=== PATIENT | female | born 1995 | race Caucasian/White ===

== ENCOUNTER 2018-05-21 23:56 | Inpatient (IN) | payer MEDICAID, OTHER ==
[2018-05-22] MEDS ORDERED: STADOL IV PRN (00:55)
[2018-05-22] MEDS ORDERED: BRETHINE IVP PRN (00:55)
[2018-05-22] MEDS ORDERED: AMPICILLIN/NS 2 GM/100 ML 2 GM/100 ML BAG IV ONE (00:55)
[2018-05-22] MEDS ORDERED: XYLOCAINE 2% INFILTRATI ONE ×2 (00:55→01:46)
[2018-05-22] MEDS ORDERED: MINERAL OIL PO PRN ×2 (00:55→01:46)
[2018-05-22] MEDS ORDERED: BRETHINE SUB-Q PRN (00:55)
[2018-05-22] MEDS ORDERED: PITOCin/NS 20 UNIT/1000ML DRIP 20 UNITS/1,000 ML BAG IV SCH (01:00)
[2018-05-22] MEDS ORDERED: LACTATED RINGERS 1,000 ML IV SCH ×2 (01:00→02:00)
[2018-05-22 01:49] LABS: Hematocrit 36.3 % (30.3-42.9); Hemoglobin 12.1 gm/dl (10.1-14.3); Mean Corpuscular HGB Conc 33 % (30-34); Mean Corpuscular Volume 91 fl (79-97); Platelet Count 204 K/mm3 (140-440); Red Blood Count 3.99 M/mm3 (3.65-5.03); Red Cell Distribution Width 14.7 % (13.2-15.2)
[2018-05-22] MEDS ORDERED: PITOCin/NS 30 UNIT/500ML 30,000 MILLIUNITS/500 ML BAG IV ONE (02:04)
--- NOTE | 2018-05-22 02:29 | History and Physical Report ---
History of Present Illness Date of examination: 05/22/18 Date of admission: 05/22/18 01:28 Chief complaint: Labor Pains History of present illness: Late transfer into care at 35 5/7 Weeks, Uncomplicated course Past History Past Medical History: asthma Past Surgical History: other (Hernia Repair) Family/Genetic History: diabetes, heart disease, hypertension, cancer Social history: no significant social history, - Obstetrical History Expected Date of Delivery: 05/23/18 Actual Gestation: 39 Week(s) 6 Day(s) : 3 Para: 1 Induced : 1 Number of Living Children: 1 #1 Gender: Male year: 13 Birthweight: 3.118 kg Method of Delivery: Vaginal Gestational age at delivery: 39 Complications: none Medications and Allergies Allergies Allergy/AdvReac Type Severity Reaction Status Date / Time No Known Allergies Allergy Verified 05/22/18 01:03 Home Medications Medication Instructions Recorded Confirmed Last Taken Type Formula Tablet PO QDAY 05/22/18 1 Day Ago History ~05/21/18 1 tab Active Meds: Active Medications Butorphanol Tartrate (Stadol) 2 mg IV Q2H PRN PRN Reason: Pain , Severe (7-10) Ephedrine Sulfate (Ephedrine Sulfate) 10 mg IV Q2M PRN PRN Reason: Hypotension Ampicillin Sodium (Ampicillin/Ns 1 Gm/50 Ml) 1 gm in 50 mls @ 100 mls/hr IV Q4HR ERIKA; Protocol Lactated Ringer's (Lactated Ringers) 1,000 mls @ 125 mls/hr IV DIRECT ERIKA Oxytocin/Sodium Chloride (Pitocin/Ns 20 Unit/1000ml Drip) 20 units in 1,000 mls @ 125 mls/hr IV DIRECT ERIKA Oxytocin/Sodium Chloride (Pitocin/Ns 30 Unit/500ml) 30 units in 500 mls @ 1 mls/hr IV TITR ERIKA; Protocol Mineral Oil (Mineral Oil) 30 ml PO QHS PRN PRN Reason: Constipation Terbutaline Sulfate (Brethine) 0.25 mg SUB-Q ONCE PRN PRN Reason: Hyperstimulation/Hypertonicity Terbutaline Sulfate (Brethine) 0.25 mg IVP ONCE PRN PRN Reason: Hyperstimulation/Hypertonicity Review of Systems All systems: negative - Vital Signs Vital signs: Vital Signs Pulse BP 95 H 122/71 05/22/18 00:15 05/22/18 00:15 Temp Pulse Resp BP Pulse Ox 98.6 F 105 H 20 118/60 05/22/18 00:17 05/22/18 00:37 05/22/18 00:17 05/22/18 00:37 - Physical Exam Breasts: Positive: normal Cardiovascular: Regular rate Lungs: Positive: Clear to auscultation, Normal air movement Abdomen: Positive: normal appearance, soft, normal bowel sounds Genitourinary (Female): Positive: normal external genitalia, normal perenium Vagina: Positive: normal moisture Uterus: Positive: enlarged Extremities: Positive: normal - Obstetrical FHR: category 1 Cervical Dilatation: 6 (Small Amount of clear fluid upon AROM @ 0222) Cervical Effacement Percentage: 80 station: -1 Uterine Contraction Pattern: Irregular Uterine Tone Measurement Phase: Resting Uterine Contraction Intensity: Moderate Results Result Diagrams: 05/22/18 01:38 All other labs normal. Assessment and Plan A: IUP @ 39 6/7 weeks Category I Tracing Active Labor GBS Positive P: Admit to L&D per Routine Orders GBS Prophylaxis AROM Pitocin Augmentation
[2018-05-22] MEDS ORDERED: PITOCin/NS 30 UNIT/500ML 30 UNITS/500 ML BAG IV SCH (03:00)
[2018-05-22] MEDS ORDERED: NORCO 5/325 PO PRN (03:27)
[2018-05-22] MEDS ORDERED: BENADRYL PO PRN (03:27)
--- NOTE | 2018-05-22 03:34 | Procedure Note ---
OB Delivery Note - Delivery Date of Delivery: 05/22/18 (0311) Surgeon: ANTHONY GARBER Estimated blood loss: 200cc - Vaginal Delivery presentation: vertex Delivery position: OA Intrapartum events: none Delivery induction: none Delivery augmentation: rupture of membranes, pitocin Delivery monitor: external FHT, external uterine Route of delivery: Delivery placenta: spontaneous Delivery cord: 3 umbilical vessels Episiotomy: none Delivery laceration: none Anesthesia: none Delivery comments: of a live 6'10 female over a intact perineum under IV pain control with Apgars of 8 and 9 at 0311 on 05/22/2018. Infant directly to maternal abd/chest, skin to skin contact. Spontaneous delivery of placenta complete and intact with Galo side presenting at 0315. Fundus is firm and midline located 5 below the U. Lochia is scant. Delayed cord clamping and cutting; Cord cut by maternal grandmother. Cord blood collected. Placenta discarded. GBS Prophylaxis x 1. - A at 1 minute: 8 at 5 minutes: 9 Gender: Female (6'10)
[2018-05-22] MEDS ORDERED: SODIUM CHLORIDE FLUSH SYRINGE 10 ML IV NR (04:00)
[2018-05-22] MEDS ORDERED: AMPICILLIN/NS 1 GM/50 ML 1 GM/50 ML BAG IV SCH (04:57)
[2018-05-22] MEDS: IBUPROFEN PO SCH (10:23)
[2018-05-22 15:53] LABS: Hematocrit 36.8 % (30.3-42.9); Hemoglobin 12.2 gm/dl (10.1-14.3)
[2018-05-23] MEDS: IBUPROFEN PO SCH ×4 (01:29→14:36)
--- NOTE | 2018-05-23 10:58 | Progress Note ---
Assessment and Plan - Patient Problems (1) Status post normal vaginal delivery Current Visit: Yes Status: Acute Plan to address problem: PPD 1 - stable Continue routine PP orders Anticipate discharge in 24 hours Subjective - Subjective Date of service: 05/23/18 Principal diagnosis: PPD #1; s/p Interval history: see H&P and OB Delivery Procedure note Patient reports: appetite normal, voiding normally, pain well controlled, ambulating normally : doing well, other (breast and bottle feeding) Objective - Vital Signs Latest vital signs: Vital Signs Temp Pulse Resp BP BP Pulse Ox 05/23/18 07:23 97.8 F 76 18 99/70 05/23/18 00:01 98.5 F 81 20 101/52 96 05/22/18 16:00 98.4 F 87 20 96/55 96 05/22/18 11:56 98.5 F 81 18 114/61 95 Intake and Output 05/22/18 05/23/18 05/23/18 23:59 07:59 15:59 Intake Total 500 480 Balance 500 480 Intake: Oral 500 480 Other: Total, Intake Amount 500 240 # Voids Void 2 1 - Exam Cardiovascular: Present: Regular rate Lungs: Present: Clear to auscultation Abdomen: Present: normal appearance, soft Vulva: both: normal Uterus: Present: normal, firm, fundal height at umbilicus Extremities: Present: normal Comments: small lochia
[2018-05-24] MEDS: IBUPROFEN PO SCH ×2 (00:28→10:52)
[2018-05-24 08:00] VITALS: BP 104/62
--- NOTE | 2018-05-24 11:52 | Progress Note ---
Assessment and Plan A: day 2 S/P spontaneous vaginal delivery. P: Discharge patient home today. discharge instructions and warning signs discussed with patient. Advised patient to avoid intercourse, lifting and heavy housework, driving. Advised patient to continue taking her vitamins at home. Advised patient to follow up at OB clinic in 6 weeks for exam. Patient voiced understanding of all instructions. Subjective - Subjective Date of service: 05/24/18 Principal diagnosis: PPD #2; s/p Interval history: day 2 S/P spontaneous vaginal delivery. Doing well. Patient desires discharge home today. Patient is voiding without difficulty. Ambulating well. Tolerating a regular diet without nausea or vomiting. Patient denies headache, chest pain, cough, shortness of breath, abdominal pain, leg pain, heavy bleeding, or any other problems. Patient reports: appetite normal, voiding normally, pain well controlled, flatus, ambulating normally, no dizzy ambulation, no nauseated : doing well Objective - Vital Signs Latest vital signs: Vital Signs Temp Pulse Resp BP BP Pulse Ox 05/24/18 07:25 98.4 F 68 18 104/62 05/24/18 00:28 98.4 F 18 107/59 05/24/18 00:22 98.4 F 74 18 107/59 96 05/23/18 16:29 98.4 F 82 18 103/56 Intake and Output 05/23/18 05/24/18 05/24/18 23:59 07:59 15:59 Intake Total 720 960 Balance 720 960 Intake: Oral 480 480 Intake, Free Water 240 480 Other: Total, Intake Amount 480 480 # Voids Void 2 1 - Exam Cardiovascular: Present: Regular rate, Normal S1, Normal S2 Lungs: Present: Clear to auscultation Abdomen: Present: normal appearance, soft. Absent: distention, tenderness, guarding, rigidity Uterus: Present: normal, firm, fundal height below umbilicus. Absent: bogginess, tenderness Extremities: Present: normal, edema (mild bilateral pedal edema). Absent: tende rness
--- NOTE | 2018-05-24 11:54 | Discharge Summary ---
<NILTON AGOSTO - Last Filed: 05/24/18 11:52> Providers - Providers Date of Admission: 05/22/18 01:28 Date of discharge: 05/24/18 Attending physician: FLASH KENDRICK MD None Primary care physician: FLASH KENDRICK MD Hospitalization Reason for admission: active labor Delivery: Episiotomy: none Laceration: none Other procedures: none complications: none Discharge diagnosis: IUP at term delivered Innis baby: female Pertinent studies: Labs Hospital course: Normal hospital course. Condition at discharge: Good Disposition: DC-01 TO HOME OR SELFCARE - Discharge Diagnoses (1) Term delivered Status: Acute Plan - Provider Discharge Summary Activity: routine, no sex for 6 weeks, no heavy lifting 4 weeks, no strenuous exercise Diet: routine Instructions: routine Additional instructions: Continue taking your vitamins at home. Call your doctor immediately for: * Fever > 100.5 * Heavy vaginal bleeding ( >1 pad per hour) * Severe persistent headache * Shortness of breath * Reddened, hot, painful area to leg or breast - Follow up plan Follow up: FLASH KENDRICK MD [Primary Care Provider] - 6 Weeks Forms: Discharge Signature Page <LENKA TIJERINA - Last Filed: 05/25/18 13:09> Providers - Providers Date of Admission: 05/22/18 01:28 Attending physician: FLASH KENDRICK MD Primary care physician: FLASH KENDRICK MD Hospitalization Hospital course: Laboratory Tests 05/22/18 05/22/18 05/22/18 01:38 01:38 01:38 WBC 8.4 RBC 3.99 Hgb 12.1 Hct 36.3 MCV 91 MCH 30 MCHC 33 RDW 14.7 Plt Count 204 RPR Nonreactive Blood Type O POSITIVE Antibody Screen Negative 05/22/18 15:30 WBC RBC Hgb 12.2 Hct 36.8 MCV MCH MCHC RDW Plt Count RPR Blood Type Antibody Screen Plan - Provider Discharge Summary Additional instructions: [] Smoking cessation referral if applicable(refer to patient education folder for contact #) [] Refer to [facility] Booklet Call your doctor immediately for: * Fever > 100.5 * Heavy vaginal bleeding ( >1 pad per hour) * Severe persistent headache * Shortness of breath * Reddened, hot, painful area to leg or breast * Drainage or odor from incision. * Keep incision clean and dry at all times and follow doctor's instructions regarding bathing/showering
== END 2018-05-24 18:39 | disposition home or self-care (01) | DRG 807 ==
LOC: TRG 23:56 → LD 05-22 01:28 → OB 05-22 04:54
PROVIDERS: ADMIT Obstetrics & Gynecology; ATTEND Obstetrics & Gynecology
PROC: 10E0XZZ Delivery of Products of Conception, External Approach (ICD-10-PCS; principal; 2018-05-22)
DX: O99.824 Streptococcus B carrier state complicating childbirth (principal); Z37.0 Single live birth; O99.52 Diseases of the respiratory system complicating childbirth; J45.909 Unspecified asthma, uncomplicated; Z3A.39 39 weeks gestation of pregnancy
CPT/HCPCS: 36415; 85014; 85018; 85027; 86592; 86850; 86900; 86901; G0378; J0290; J0595; J2590; J7120